=== PATIENT | male | born 1975 | race Caucasian/White ===

== ENCOUNTER 2023-05-11 11:55 | Outpatient (AMB) | payer OTHER, SELFPAY ==
--- NOTE | 2023-05-11 11:59 | AM.OFFWIN_ITS ---
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 It was done at [facility]. Patient presents here for removal of stitches. [facility] Social History Patient Tobacco Use Status: Never used Tobacco Physical Exam Vital Signs: Last Vital Signs Pulse 78 05/11/23 12:03 BP 126/74 05/11/23 12:03 Pulse Ox 98 05/11/23 12:03 Oxygen Delivery Method Room Air 05/11/23 12:03 Skin Other: Right hand: Dorsum: Multiple small lacerations which have been stitched. Some wounds are open with yellow granulation tissue. Assessment & Plan Assessment & Plan (1) Open wound, hand: Code(s): S61.409A - Unspecified open wound of unspecified hand, initial encounter Plan: Sutures removed. Patient tolerated the procedure well. Note for work given. Coding Level of Care Code Est Pt Level 3 (99327) Diagnoses Open wound, hand S61.409A
[2023-05-11 12:03] VITALS: BP 126/74; PULSE 78; O2SAT 98
== END 2023-05-11 13:16 | disposition home or self-care (01) ==
PROVIDERS: Visit Provider Internal Medicine
DX: S61.409A Unspecified open wound of unspecified hand, initial encounter (principal)
CPT/HCPCS: 99213

== ENCOUNTER 2023-05-18 08:05 | Outpatient (AMB) | payer OTHER, SELFPAY ==
--- NOTE | 2023-05-18 08:14 | MHC.OFFWIV ---
Intake Vital Signs 05/18/23 08:15 Height 6 ft BP 128/74 Blood Pressure Location Lt brachial Position Sitting Pulse 70 Pulse Source Pulse Oximeter Pulse Oximetry (%) 99 Oxygen Delivery Method Room Air Intake Visit Reasons: EP dog bite f/u, Dog bite is in error. Intake Note: pt is here for follow up on wound, stitches removed Patient Tobacco Use Status: Never used Tobacco Allergies No Known Allergies Allergy (Verified 05/18/23 08:32) Medication List - Last Reconciled 05/18/23 by Kemar Aguilar MD No Known Home Meds Do you need a note to return to daycare/school/sports/work: Yes HPI EP dog bite f/u HPI Details 48-year-old male presents to the office for a follow-up visit. The chief complaint indicates dog bite. There is no dog bite. Patient reports his wound is improving and healing. Continues to have difficulty making a fist or flexing all his digits in the right hand. Continues to work with modifications. Unable to use the wrench in the right hand. PFSH Social History Patient Tobacco Use Status: Never used Tobacco Physical Exam Vital Signs: Last Vital Signs Pulse 70 05/18/23 08:15 BP 128/74 05/18/23 08:15 Pulse Ox 99 05/18/23 08:15 Oxygen Delivery Method Room Air 05/18/23 08:15 Skin Other: Right hand: Dorsum: The wound is healing with scarring. Able to flex all the digits with discomfort. Assessment & Plan Assessment & Plan (1) Open wound of right hand: Code(s): S61.401A - Unspecified open wound of right hand, initial encounter Plan: This condition needs longitudinal care. Patient would need to follow-up with his primary care physician regarding long-term care of the right hand. A note was provided to the employer that he should use modifications for 1 more week. Patient was advised to follow-up with his primary care provider. Physical therapy appointment was made to suggest exercises for improved mobility of the right hand. Coding Level of Care Code Est Pt Level 3 (21503) Diagnoses Open wound of right hand S61.401A
[2023-05-18 08:15] VITALS: BP 128/74; PULSE 70; O2SAT 99
== END 2023-05-18 08:53 | disposition home or self-care (01) ==
PROVIDERS: Visit Provider Internal Medicine
DX: S61.401A Unspecified open wound of right hand, initial encounter (principal)
CPT/HCPCS: 99213

== ENCOUNTER 2024-10-13 15:06 | Outpatient (REF) | payer OTHER, SELFPAY | END 2024-10-13 15:07 | disposition home or self-care (01) | LOC: HO.LAB 15:06 | PROVIDERS: Visit Provider Physician Assistant | DX: N30.01 Acute cystitis with hematuria (principal); Z13.89 Encounter for screening for other disorder | CPT/HCPCS: 81003; 87086; 87088; 87186 ==

== ENCOUNTER 2024-10-13 15:26 | Outpatient (AMB) | payer OTHER, SELFPAY ==
[2024-10-13 15:28] VITALS: BP 130/72; PULSE 92; TEMP 37.2; O2SAT 99; BMI 20.5
--- NOTE | 2024-10-13 15:28 | AM.OFFWIN_ITS ---
Intake Vital Signs 10/13/24 15:28 Height 6 ft Weight 151 lb BMI 20.5 BP 130/72 Blood Pressure Location Lt brachial Position Sitting Pulse 92 Pulse Source Pulse Oximeter Temp 99.0 F Temp Source Oral Pulse Oximetry (%) 99 Oxygen Delivery Method Room Air Intake Visit Reasons: EP UTI Intake Note: pt presents with concern for UTI, c/o urine frequency coming/going, cold sweats on/off, fevers on/off and right flank pain x1 wk Patient Tobacco Use Status: Never used Tobacco Allergies No Known Allergies Allergy (Verified 10/13/24 15:36) Do you need a note to return to daycare/school/sports/work: No HPI HPI Comments History of Present Illness Details History - The patient is a 49-year-old male pres enting with symptoms suggestive of a urinary tract infection and possible kidney stone. - Symptoms began a week ago with dry thr oat and soreness after working in a [employer] environment. - Developed cold sweats and fluctuating temperature 6 days ago - 5 days ago, experienced increased urge ncy and frequency of urination with burning sensation, but no hematuria or back pain. - Severe right-sided pain occurred 2 day s ago, resolving spontaneously. - No family history of kidney stones and no prior similar episodes. Physical Exam General: Cooperative, healthy appearing, comfortable, no acute distress and well developed Orientation: Patient oriented x3 Limitations: No limitations Head: Normal to inspection Ears: Hearing grossly normal bilaterally Face and sinus: Normal facial exam Neck: Normal visual inspection and Yes full ROM Respiratory: Normal respiratory effort and able to speak in complete sentences. Skin: No rashes or lesions noted Neuro: Patient oriented x3 Back/spine: negative CVA bilaterally PFSH Social History Patient Tobacco Use Status: Never used Tobacco Review of Systems Const All systems reviewed & are unremarkable except as noted in HPI and below Physical Exam Vital Signs: Last Vital Signs Temp 99.0 F 10/13/24 15:28 Pulse 92 10/13/24 15:28 BP 130/72 10/13/24 15:28 Pulse Ox 99 10/13/24 15:28 Oxygen Delivery Method Room Air 10/13/24 15:28 BMI result Body Mass Index 20.5 Assessment & Plan Assessment & Plan (1) UTI (urinary tract infection): Code(s): N39.0 - Urinary tract infection, site not specified Qualifiers: Urinary tract infection type: acute cystitis Hematuria presence: with hematuria Qualified Code(s): N30.01 - Acute cystitis with hematuria Plan: Patient was informed and verbally consented to the use of an ambient scribe for clinic note documentation during this visit. Urinary Tract Infection - UA with leuks, + nitrites, + blood - Prescribed antibiotics to treat the urinary tract infection. - Will send for culture - Suspected passage of a kidney stone causing urinary tract infection that he passed. - Recommended ER visit if severe pain or fever occurs, as further evaluation may be needed, could have more stones. Orders: Orders Urine Culture Today N39.0 - Urinary tract infection, site not specified AMB Urinalysis Automated Today Z13.9 - Encounter for screening, unspecified Medications: New cefuroxime axetil 500 mg PO Q12H 14 tabs 0RF 7 days Coding Level of Care Code New Pt Level 3 (99465) Diagnoses Acute cystitis with hematuria N30.01 Urinary tract infection type: acute cystitis Hematuria presence: with hematuria
== END 2024-10-13 17:47 | disposition home or self-care (01) ==
PROVIDERS: Visit Provider Physician Assistant
DX: N30.01 Acute cystitis with hematuria (principal); Z13.9 Encounter for screening, unspecified